=== PATIENT | male | born 1955 | race Caucasian/White ===

== ENCOUNTER 2017-03-26 19:14 | Inpatient (IN) | payer OTHER ==
[~2017-03-26] VITALS: Ht 109.2 cm; Wt 57.8 kg
[2017-03-26 19:40] LABS: BASOPHIL COUNT 0.1 K/uL (0-0.1); EOSINOPHIL (%) 0 % (0-5); IMMATURE GRANULOCYTE (%) 1.7 % (0.0-0.7); IMMATURE GRANULOCYTE COUNT 0.4 K/uL; INSTRUMENT ABS NEUTROPHIL CT 20.4 K/uL; LYMPHOCYTE COUNT 0.9 K/uL (1.0-2.8); MCH 30.2 PG (29.0-34.0); MCHC 34.8 G/DL (30.0-36.0); MCV 86.7 FL (86-99); MEAN PLAT.VOLUME 9.1 uM^3 (9.0-12.4); MONOCYTE (%) 3.8 % (3-12); MONOCYTE COUNT 0.9 K/uL (0-0.8); NEUTROPHIL (%) 90.5 % (45-76); NEUTROPHIL COUNT 20.4 K/uL (1.8-6.4); PLATELET COUNT 283 K/uL (156-360); RBC DIS.WIDTH-CV 14.6 % (11.8-14.6); RBC DIS.WIDTH-SD 45.1 % (39-53); RED BLOOD COUNT 5.77 M/uL (4.00-5.50); WHITE BLOOD COUNT 22.6 K/uL (4.1-10.2)
[2017-03-26 19:41] LABS: CARBON DIOXIDE (BICARBONATE) 16.4 MEQ/L (20-31)
[2017-03-26 19:42] LABS: CREATININE 1.2 mg/dL (0.6-1.3); POTASSIUM 2.8 mEq/L (3.7-5.4)
[2017-03-26 19:46] LABS: INTER. NORMALIZED RATIO 1.1; PROTHROMBIN TIME 12.9 SEC (10.2-12.9)
[2017-03-26 19:51] LABS: CHLORIDE 102 mEq/L (99-109); POTASSIUM 2.8 mEq/L (3.7-5.4)
[2017-03-26 19:52] LABS: SODIUM 141 mEq/L (136-147)
[2017-03-26 19:55] LABS: ANION GAP 25 MEQ/L (2-14)
[2017-03-26 19:56] LABS: TOTAL BILIRUBIN 3.8 mg/dL (0.0-1.0)
[2017-03-26 19:57] LABS: ALKALINE PHOSPHATASE 124 IU/L (3-129)
[2017-03-26 19:58] LABS: GFR ESTIMATE (CALCULATED) 55 mL/min/
[2017-03-26 19:59] LABS: UREA NITROGEN (BUN) 24 mg/dL (9-23)
[2017-03-26 20:02] LABS: TROP-I INTERPRETATION POSITIVE
[2017-03-26 20:12] LABS: GLUCOSE 424 mg/dL (70-99); TROPONIN-I 1.03 ng/mL (0.0-0.30)
[2017-03-26 20:46] LABS: LIPASE 91 U/L (1.0-51.0)
[2017-03-26 20:56] LABS: ADD MIUA? YES; BILIRUBIN NEGATIVE; BLOOD MODERATE; COLOR YELLOW ((YELLOW)); GLUCOSE (STRIP) >=500; KETONES 5; LEUKOCYTES NEGATIVE; NITRITE NEGATIVE; PROTEIN (STRIP) 100; SPECIFIC GRAVITY 1.039 (1.000-1.030); UROBILINOGEN 0.2 MG/DL (0.2-1.0)
[2017-03-26 20:59] LABS: Estimated Average Glucose 82 mg/dL (70-123); HEMOGLOBIN A1c (GLYCOHEMOGLOB) 4.5 % HGB (Below 5.7)
[2017-03-26 21:01] LABS: BACTERIA NONE SEEN /HPF; EPITHELIAL CELLS RARE /HPF; HYALINE CASTS 0-5 /LPF; MUCUS TRACE /LPF; RED BLOOD CELLS 20-30 /HPF (0-5); UCUL ADDED? NO; WHITE BLOOD CELLS 0-5 /HPF (0-5)
[2017-03-26 21:18] LABS: POINT-OF-CARE METER ID UU14100415
[2017-03-26 22:28] LABS: POINT-OF-CARE METER ID UU14100415
[2017-03-26 23:37] LABS: BASE EXCESS -16.4 mEq/L (-3 to +3); BICARBONATE 8.8 mEq/L (22-26); CARBOXY HGB 1.9 % (0-5); COMMENTS - BLOOD GASES C+A+; DEVICE NIV; FI02 100 %; METHEMOGLOBIN 1.1 % (0-1.5); MODE SPONT; PCO2 21 mm Hg (35-45); PO2 157 mm Hg (80-100); SITE RR
[2017-03-26 23:38] LABS: PEEP 8 CM/H20; PRES. SUPPORT 10 CM/H2O; TOTAL RESP RATE 32 resp/min; pH 7.23 (7.35-7.45)
[2017-03-26 23:58] LABS: POINT-OF-CARE METER ID UU14100415
[2017-03-27] VITALS (26 sets, daily range): BP systolic 78–152; BP diastolic 52–139
[2017-03-27 00:47] LABS: POINT-OF-CARE METER ID UU14100415
[2017-03-27 01:43] LABS: MAGNESIUM 2.2 mg/dl (1.3-2.7); SAMPLE HEMOLYSIS CHECK 0; SAMPLE ICTERIC CHECK 1; SAMPLE LIPEMIA CHECK 0
[2017-03-27] MEDS ORDERED: NORVASC5 MG PO (03:09)
[2017-03-27] MEDS ORDERED: CILOSTAZOL100 MG PO (03:11)
[2017-03-27] MEDS ORDERED: LO-DOSE ASPIRIN81 M1 PO (03:11)
[2017-03-27] MEDS ORDERED: NEURONTIN300 MG PO (03:12)
[2017-03-27] MEDS ORDERED: EFFIENT10 MG PO (03:12)
[2017-03-27 03:13] LABS: BASOPHIL COUNT 0.1 K/uL (0-0.1); EOSINOPHIL (%) 0 % (0-5); IMMATURE GRANULOCYTE (%) 1.9 % (0.0-0.7); IMMATURE GRANULOCYTE COUNT 0.6 K/uL; INSTRUMENT ABS NEUTROPHIL CT 28.9 K/uL; LYMPHOCYTE COUNT 1.4 K/uL (1.0-2.8); MEAN PLAT.VOLUME 9.1 uM^3 (9.0-12.4); MONOCYTE (%) 6.6 % (3-12); MONOCYTE COUNT 2.2 K/uL (0-0.8); NEUTROPHIL (%) 87.1 % (45-76); NEUTROPHIL COUNT 28.9 K/uL (1.8-6.4); PLATELET COUNT 267 K/uL (156-360)
[2017-03-27] MEDS ORDERED: PRAVACHOL20 MG PO (03:13)
[2017-03-27] MEDS ORDERED: PERCOCET 7.51 TABLET PO (03:14)
[2017-03-27 03:17] LABS: MCH 30.1 PG (29.0-34.0); MCHC 34.6 G/DL (30.0-36.0); MCV 87.1 FL (86-99); RBC DIS.WIDTH-SD 46.8 % (39-53); RED BLOOD COUNT 5.74 M/uL (4.00-5.50); WHITE BLOOD COUNT 33.1 K/uL (4.1-10.2)
[2017-03-27 03:32] LABS: SODIUM 143 mEq/L (136-147)
[2017-03-27 03:35] LABS: TROP-I INTERPRETATION POSITIVE
[2017-03-27 03:39] LABS: TROPONIN-I 1.42 ng/mL (0.0-0.30)
[2017-03-27 03:40] LABS: METH RESISTANT S AUREUS PCR NEGATIVE (NEGATIVE)
[2017-03-27 03:42] LABS: MAGNESIUM 1.9 mg/dL (1.3-2.7); POTASSIUM 3.2 mEq/L (3.7-5.4)
[2017-03-27 03:43] LABS: PROBE CHECK PASS; SPECIMEN PROCESSING CONTROL PASS
[2017-03-27 03:44] LABS: GLUCOSE 215 mg/dL (70-99)
[2017-03-27 03:45] LABS: ANION GAP 19 MEQ/L (2-14)
[2017-03-27 03:46] LABS: TOTAL BILIRUBIN 3.1 mg/dL (0.0-1.0)
[2017-03-27 03:48] LABS: ALKALINE PHOSPHATASE 106 IU/L (3-129); GFR ESTIMATE (CALCULATED) > 59 mL/min/
[2017-03-27 03:49] LABS: UREA NITROGEN (BUN) 21 mg/dL (9-23)
[2017-03-27 03:51] LABS: CREATINE KINASE 118 IU/L (1-294); TOTAL CK 118 IU/L (1-294)
[2017-03-27 03:57] LABS: CHLORIDE 116 mEq/L (99-109); CK-MB 19.1 ng/mL (0.0-4.9)
[2017-03-27 04:10] LABS: BASE EXCESS -14.7 mEq/L (-3 to +3); BICARBONATE 9.6 mEq/L (22-26); CARBOXY HGB 1.7 % (0-5); COMMENTS - BLOOD GASES C+A+; DEVICE NIV; FI02 90 %; MODE SPONT; PCO2 21 mm Hg (35-45); PEEP 10 CM/H20; PO2 189 mm Hg (80-100); PRES. SUPPORT 5 CM/H2O; SITE LR; TOTAL RESP RATE 41 resp/min
[2017-03-27 04:11] LABS: pH 7.27 (7.35-7.45)
[2017-03-27 04:18] LABS: POINT-OF-CARE METER ID UU14174217; POINT-OF-CARE USER ID RADDRS44
[2017-03-27 06:48] LABS: POINT-OF-CARE METER ID UU14174217; POINT-OF-CARE USER ID RADDRS44
[2017-03-27 12:08] LABS: POINT-OF-CARE METER ID UU13113803
[2017-03-27 18:00] LABS: POINT-OF-CARE METER ID UU14314082
[2017-03-27 23:30] LABS: POINT-OF-CARE METER ID UU14174217
[2017-03-27 23:49] LABS: CHLORIDE 111 mEq/L (99-109); POTASSIUM 3.4 mEq/L (3.7-5.4); SODIUM 137 mEq/L (136-147)
[2017-03-27 23:52] LABS: GLUCOSE 74 mg/dL (70-99)
[2017-03-27 23:53] LABS: ANION GAP 15 MEQ/L (2-14); TOTAL BILIRUBIN 2.9 mg/dL (0.0-1.0)
[2017-03-27 23:55] LABS: ALKALINE PHOSPHATASE 86 IU/L (3-129); GFR ESTIMATE (CALCULATED) > 59 mL/min/
[2017-03-27 23:56] LABS: UREA NITROGEN (BUN) 29 mg/dL (9-23)
[2017-03-27 23:58] LABS: TOTAL CK 706 IU/L (1-294)
[2017-03-27 23:59] LABS: TROP-I INTERPRETATION POSITIVE
[2017-03-28] VITALS (43 sets, daily range): BP systolic 66–174; BP diastolic 24–87
[2017-03-28] LABS: CREATINE KINASE 706 IU/L (1-294)
[2017-03-28 00:01] LABS: TROPONIN-I 1.22 ng/mL (0.0-0.30)
[2017-03-28 00:34] LABS: CK-MB 25.4 ng/mL (0.0-4.9)
[2017-03-28 00:52] LABS: HEMATOCRIT 33.6 % (38.0-50.0); MCH 30.3 PG (29.0-34.0); MEAN PLAT.VOLUME 9.5 uM^3 (9.0-12.4); RBC DIS.WIDTH-CV 14.9 % (11.8-14.6); RBC DIS.WIDTH-SD 45.2 % (39-53); WHITE BLOOD COUNT 12.2 K/uL (4.1-10.2)
[2017-03-28 01:42] LABS: ABS NEUTROPHIL COUNT 11.8; ANISOCYTOSIS 1+; BURR CELLS 2+; EOSINOPHIL ABS CT 0; INSTRUMENT ABS NEUTROPHIL CT 11.1 K/uL; LYMPHOCYTES 1.8 % (15.0-45.0); MICROCYTOSIS 1+; OVALOCYTES 1+; PLAT.SUFFICIENCY DECREASED; POIKILOCYTOSIS 1+; SEG.NEUTROPHILS 75.4 % (46.0-76.0); SPHEROCYTES 1+
[2017-03-28 03:30] LABS: CARBOXY HGB 1.9 % (0-5); PCO2 < 19 mm Hg (35-45)
[2017-03-28 03:31] LABS: COMMENTS - BLOOD GASES A+C+; DEVICE NCHH; FI02 70 %; O2 FLOW 40 L/MIN; PO2 51 mm Hg (80-100); SITE RR; TOTAL RESP RATE 34 resp/min; pH 7.42 (7.35-7.45)
[2017-03-28 04:18] LABS: PLATELET COUNT 96 K/uL (156-360)
[2017-03-28 04:55] LABS: POINT-OF-CARE METER ID UU14314082
[2017-03-28 04:59] LABS: INTER. NORMALIZED RATIO 1.4; PROTHROMBIN TIME 15.8 SEC (10.2-12.9)
[2017-03-28 05:03] LABS: HEMATOCRIT 32.5 % (38.0-50.0); MCH 29.8 PG (29.0-34.0); MCHC 34.2 G/DL (30.0-36.0); MCV 87.4 FL (86-99); RBC DIS.WIDTH-CV 15.3 % (11.8-14.6); RBC DIS.WIDTH-SD 48.4 % (39-53); RED BLOOD COUNT 3.72 M/uL (4.00-5.50); WHITE BLOOD COUNT 9.9 K/uL (4.1-10.2)
[2017-03-28 05:09] LABS: CHLORIDE 109 mEq/L (99-109); POTASSIUM 3.5 mEq/L (3.7-5.4); SODIUM 136 mEq/L (136-147)
[2017-03-28 05:11] LABS: GLUCOSE 91 mg/dL (70-99)
[2017-03-28 05:12] LABS: ANION GAP 15 MEQ/L (2-14)
[2017-03-28 05:13] LABS: TOTAL BILIRUBIN 2.9 mg/dL (0.0-1.0)
[2017-03-28 05:15] LABS: ALKALINE PHOSPHATASE 75 IU/L (3-129); GFR ESTIMATE (CALCULATED) > 59 mL/min/
[2017-03-28 05:16] LABS: UREA NITROGEN (BUN) 32 mg/dL (9-23)
[2017-03-28 06:00] LABS: ABS NEUTROPHIL COUNT 8.7; ANISOCYTOSIS 2+; BAND NEUTROPHILS 28.1 % (0-8.0); BURR CELLS 2+; EOSINOPHIL ABS CT 0; LYMPHOCYTES 1.8 % (15.0-45.0); MEAN PLAT.VOLUME 10.1 uM^3 (9.0-12.4); MICROCYTOSIS 1+; PLAT.SUFFICIENCY DECREASED; PLATELET COUNT 92 K/uL (156-360); POIKILOCYTOSIS 3+; SEG.NEUTROPHILS 59.6 % (46.0-76.0)
[2017-03-28 06:07] LABS: CARBOXY HGB 1.4 % (0-5); METHEMOGLOBIN 2.1 % (0-1.5)
[2017-03-28 06:08] LABS: BICARBONATE 15.3 mEq/L (22-26); COMMENTS - BLOOD GASES C+; DEVICE VENT; FI02 100 %; MECHANICAL RATE 16 resp/min; MODE AC; PCO2 31 mm Hg (35-45); PEEP 5 CM/H20; PO2 295 mm Hg (80-100); SITE RIGHT FOREARM ALINE; TIDAL VOLUME 500 ML; TOTAL RESP RATE 37 resp/min
[2017-03-28] MEDS ORDERED: NORCO 5/3251 TABLET PO (07:18)
[2017-03-28] MEDS ORDERED: NORCO 7.5/321 TABLET PO (07:19)
[2017-03-28 08:24] LABS: HEMATOCRIT 29.4 % (38.0-50.0); MCV 85.7 FL (86-99); MEAN PLAT.VOLUME 10.4 uM^3 (9.0-12.4); PLATELET COUNT 97 K/uL (156-360); RBC DIS.WIDTH-CV 15.2 % (11.8-14.6); RBC DIS.WIDTH-SD 46.9 % (39-53); RED BLOOD COUNT 3.43 M/uL (4.00-5.50); WHITE BLOOD COUNT 9.7 K/uL (4.1-10.2)
[2017-03-28 08:47] LABS: ANION GAP 12 MEQ/L (2-14); CHLORIDE 109 MEQ/L (99-109); GFR ESTIMATE (CALCULATED) > 59 mL/min/; GLUCOSE 94 mg/dL (70-99); POTASSIUM 3.5 MEQ/L (3.7-5.4); SAMPLE HEMOLYSIS CHECK 0; SAMPLE ICTERIC CHECK 1; SAMPLE LIPEMIA CHECK 0; SODIUM 139 MEQ/L (136-147); UREA NITROGEN (BUN) 31 mg/dL (9-23)
[2017-03-28 08:51] LABS: TROP-I INTERPRETATION POSITIVE
[2017-03-28 09:17] LABS: BASE EXCESS -4.8 mEq/L (-3 to +3); CARBOXY HGB 1.4 % (0-5); METHEMOGLOBIN 2.2 % (0-1.5); PCO2 32 mm Hg (35-45); pH 7.39 (7.35-7.45)
[2017-03-28 09:18] LABS: BICARBONATE 19.4 mEq/L (22-26); PO2 86 mm Hg (80-100)
[2017-03-28 09:19] LABS: DEVICE 840; FI02 55 %; MECHANICAL RATE 16 resp/min; MODE AC; PEEP 5 CM/H20; SITE ART LINE; TIDAL VOLUME 500 ML; TOTAL RESP RATE 32 resp/min
[2017-03-28 12:38] LABS: POINT-OF-CARE METER ID UU14314082
[2017-03-28 16:36] LABS: BASE EXCESS -1.7 mEq/L (-3 to +3); BICARBONATE 21.7 mEq/L (22-26); CARBOXY HGB 1.9 % (0-5); DEVICE 840; METHEMOGLOBIN 1.7 % (0-1.5); PCO2 32 mm Hg (35-45); PO2 82 mm Hg (80-100); SITE ALINE; pH 7.44 (7.35-7.45)
[2017-03-28 16:37] LABS: FI02 40 %; MECHANICAL RATE 16 resp/min; MODE AC; TIDAL VOLUME 450 ML; TOTAL RESP RATE 16 resp/min
[2017-03-28 16:38] LABS: PEEP 6 CM/H20
[2017-03-28 16:49] LABS: ANION GAP 9 MEQ/L (2-14); CHLORIDE 110 MEQ/L (99-109); SAMPLE HEMOLYSIS CHECK 0; SAMPLE ICTERIC CHECK 1; SAMPLE LIPEMIA CHECK 0; SODIUM 140 MEQ/L (136-147)
[2017-03-28 16:51] LABS: POTASSIUM 2.7 MEQ/L (3.7-5.4)
[2017-03-28 16:54] LABS: GFR ESTIMATE (CALCULATED) > 59 mL/min/; GLUCOSE 90 mg/dL (70-99); UREA NITROGEN (BUN) 25 mg/dL (9-23)
[2017-03-28 17:04] LABS: ABS NEUTROPHIL COUNT 3.4; ANISOCYTOSIS 1+; BAND NEUTROPHILS 22.6 % (0-8.0); EOSINOPHIL ABS CT 0.1; EOSINOPHILS 1.7 % (0-5.0); HEMATOCRIT 35.6 % (38.0-50.0); INSTRUMENT ABS NEUTROPHIL CT 3.4 K/uL; LYMPHOCYTES 6.1 % (15.0-45.0); MCH 30.9 PG (29.0-34.0); MEAN PLAT.VOLUME 9.9 uM^3 (9.0-12.4); PLAT.SUFFICIENCY DECREASED; PLATELET COUNT 88 K/uL (156-360); RBC DIS.WIDTH-CV 15.6 % (11.8-14.6); RBC DIS.WIDTH-SD 48.2 % (39-53); TARGET CELLS 1+; TROP-I INTERPRETATION POSITIVE; TROPONIN-I 0.68 ng/mL (0.0-0.30); WHITE BLOOD COUNT 3.8 K/uL (4.1-10.2)
[2017-03-28 17:07] LABS: RED BLOOD COUNT 4.14 M/uL (4.00-5.50)
[2017-03-28 17:37] LABS: INTER. NORMALIZED RATIO 1.5; PROTHROMBIN TIME 16.9 SEC (10.2-12.9)
[2017-03-28 18:03] LABS: MAGNESIUM 1.3 mg/dl (1.3-2.7)
[2017-03-28 18:30] LABS: POINT-OF-CARE METER ID UU14314082
[2017-03-28 20:18] LABS: HEMATOCRIT 37.2 % (38.0-50.0); MCHC 34.9 G/DL (30.0-36.0); MCV 85.9 FL (86-99); MEAN PLAT.VOLUME 9.9 uM^3 (9.0-12.4); PLATELET COUNT 83 K/uL (156-360); RBC DIS.WIDTH-CV 15.4 % (11.8-14.6); RBC DIS.WIDTH-SD 47.6 % (39-53); RED BLOOD COUNT 4.33 M/uL (4.00-5.50)
[2017-03-28 23:51] LABS: POINT-OF-CARE METER ID UU13113803
[2017-03-29] VITALS (15 sets, daily range): BP systolic 0–193; BP diastolic 0–92
[2017-03-29 00:26] LABS: POINT-OF-CARE METER ID UU13113803
[2017-03-29 00:51] LABS: BASE EXCESS -2.1 mEq/L (-3 to +3); BICARBONATE 21.1 mEq/L (22-26); CARBOXY HGB 2.1 % (0-5); COMMENTS - BLOOD GASES C+; DEVICE VENT; FI02 30 %; METHEMOGLOBIN 1.7 % (0-1.5); PCO2 31 mm Hg (35-45); PO2 72 mm Hg (80-100); SITE ALINE; pH 7.44 (7.35-7.45)
[2017-03-29 00:52] LABS: MECHANICAL RATE 16 resp/min; MODE A/C; PEEP 5 CM/H20; TIDAL VOLUME 500 ML; TOTAL RESP RATE 27 resp/min
[2017-03-29 00:53] LABS: HEMATOCRIT 37.2 % (38.0-50.0); MCH 30.5 PG (29.0-34.0); MCHC 35.5 G/DL (30.0-36.0); MCV 85.9 FL (86-99); MEAN PLAT.VOLUME 10.1 uM^3 (9.0-12.4); PLATELET COUNT 88 K/uL (156-360); RBC DIS.WIDTH-CV 15.3 % (11.8-14.6); RBC DIS.WIDTH-SD 47.9 % (39-53); RED BLOOD COUNT 4.33 M/uL (4.00-5.50); WHITE BLOOD COUNT 6.8 K/uL (4.1-10.2)
[2017-03-29 03:22] LABS: POINT-OF-CARE METER ID UU14208751
[2017-03-29 04:55] LABS: HEMATOCRIT 37.3 % (38.0-50.0); MCH 30.6 PG (29.0-34.0); MCHC 35.4 G/DL (30.0-36.0); MCV 86.3 FL (86-99); MEAN PLAT.VOLUME 10.1 uM^3 (9.0-12.4); PLATELET COUNT 96 K/uL (156-360); RBC DIS.WIDTH-CV 15.5 % (11.8-14.6); RBC DIS.WIDTH-SD 48.3 % (39-53); RED BLOOD COUNT 4.32 M/uL (4.00-5.50); WHITE BLOOD COUNT 6.6 K/uL (4.1-10.2)
[2017-03-29 05:03] LABS: CHLORIDE 113 mEq/L (99-109); POTASSIUM 2.9 mEq/L (3.7-5.4); SODIUM 145 mEq/L (136-147)
[2017-03-29 05:05] LABS: GLUCOSE 122 mg/dL (70-99)
[2017-03-29 05:06] LABS: ANION GAP 14 MEQ/L (2-14)
[2017-03-29 05:08] LABS: TOTAL BILIRUBIN 6.2 mg/dL (0.0-1.0)
[2017-03-29 05:09] LABS: ALKALINE PHOSPHATASE 79 IU/L (3-129); GFR ESTIMATE (CALCULATED) > 59 mL/min/
[2017-03-29 05:10] LABS: UREA NITROGEN (BUN) 19 mg/dL (9-23)
[2017-03-29 07:50] LABS: POINT-OF-CARE METER ID UU14208751
[2017-03-29 08:37] LABS: HEMATOCRIT 36.2 % (38.0-50.0); MCH 30.3 PG (29.0-34.0); MCHC 35.1 G/DL (30.0-36.0); MCV 86.4 FL (86-99); MEAN PLAT.VOLUME 10.6 uM^3 (9.0-12.4); PLATELET COUNT 88 K/uL (156-360); RBC DIS.WIDTH-CV 15.9 % (11.8-14.6); RBC DIS.WIDTH-SD 49.2 % (39-53); RED BLOOD COUNT 4.19 M/uL (4.00-5.50); WHITE BLOOD COUNT 6.1 K/uL (4.1-10.2)
[2017-03-29 11:20] LABS: HEMATOCRIT 35.2 % (38.0-50.0); MCH 29.8 PG (29.0-34.0); MCHC 34.7 G/DL (30.0-36.0); MCV 85.9 FL (86-99); MEAN PLAT.VOLUME 10.3 uM^3 (9.0-12.4); PLATELET COUNT 89 K/uL (156-360); RBC DIS.WIDTH-CV 15.9 % (11.8-14.6); WHITE BLOOD COUNT 6.1 K/uL (4.1-10.2)
[2017-03-29 11:35] LABS: INTER. NORMALIZED RATIO 1.5; PROTHROMBIN TIME 17.5 SEC (10.2-12.9)
[2017-03-29 11:37] LABS: PTT 33.6 SEC (25-37)
[2017-03-29 12:05] LABS: ANION GAP 10 MEQ/L (2-14); CHLORIDE 113 MEQ/L (99-109); GFR ESTIMATE (CALCULATED) > 59 mL/min/; GLUCOSE 116 mg/dL (70-99); MAGNESIUM 1.5 mg/dl (1.3-2.7); POTASSIUM 3.4 MEQ/L (3.7-5.4); SAMPLE HEMOLYSIS CHECK 0; SAMPLE ICTERIC CHECK 2; SAMPLE LIPEMIA CHECK 0; SODIUM 144 MEQ/L (136-147); UREA NITROGEN (BUN) 17 mg/dL (9-23)
[2017-03-29 12:20] LABS: POINT-OF-CARE METER ID UU14208751
[2017-03-29 18:07] LABS: POINT-OF-CARE METER ID UU14314082
[2017-03-30 00:41] LABS: POINT-OF-CARE METER ID UU14208751
[2017-03-30 01:00] VITALS: BP 176/98
[2017-03-30 02:00] VITALS: BP 176/98
[2017-03-30 05:22] LABS: BASE EXCESS 2.8 mEq/L (-3 to +3); BICARBONATE 25.5 mEq/L (22-26); CARBOXY HGB 1.5 % (0-5); COMMENTS - BLOOD GASES C+; DEVICE VENT; FI02 50 %; MODE A/C; PCO2 32 mm Hg (35-45); PO2 107 mm Hg (80-100); SITE ALINE; pH 7.51 (7.35-7.45)
[2017-03-30 05:23] LABS: MECHANICAL RATE 16 resp/min; PEEP 6 CM/H20; TIDAL VOLUME 500 ML; TOTAL RESP RATE 25 resp/min
[2017-03-30 05:56] LABS: POINT-OF-CARE METER ID UU14314082
[2017-03-30 06:18] LABS: MCH 29.8 PG (29.0-34.0); MCHC 33.9 G/DL (30.0-36.0); MCV 88.1 FL (86-99); MEAN PLAT.VOLUME 10.2 uM^3 (9.0-12.4); PLATELET COUNT 95 K/uL (156-360); RBC DIS.WIDTH-CV 15.9 % (11.8-14.6); RBC DIS.WIDTH-SD 50.4 % (39-53); RED BLOOD COUNT 3.52 M/uL (4.00-5.50); WHITE BLOOD COUNT 7.4 K/uL (4.1-10.2)
[2017-03-30 06:35] LABS: INTER. NORMALIZED RATIO 1.2; PROTHROMBIN TIME 14.2 SEC (10.2-12.9)
[2017-03-30 06:43] LABS: CHLORIDE 110 MEQ/L (99-109); GFR ESTIMATE (CALCULATED) > 59 mL/min/; GLUCOSE 126 mg/dL (70-99); POTASSIUM 2.9 MEQ/L (3.7-5.4); SODIUM 147 MEQ/L (136-147); UREA NITROGEN (BUN) 13 mg/dL (9-23)
[2017-03-30 06:47] LABS: ANION GAP 11 MEQ/L (2-14); MAGNESIUM 1.4 mg/dl (1.3-2.7); SAMPLE HEMOLYSIS CHECK 0; SAMPLE ICTERIC CHECK 2; SAMPLE LIPEMIA CHECK 0; VANCOMYCIN, TROUGH 15.9 MCG/ML (10-20)
[2017-03-30 07:33] LABS: EOSINOPHIL (%) 1.3 % (0-5); EOSINOPHIL COUNT 0.1 K/uL (0-0.3); IMMATURE GRANULOCYTE (%) 1.5 % (0.0-0.7); IMMATURE GRANULOCYTE COUNT 0.1 K/uL; INSTRUMENT ABS NEUTROPHIL CT 6.5 K/uL; LYMPHOCYTE COUNT 0.3 K/uL (1.0-2.8); MONOCYTE (%) 5.5 % (3-12); MONOCYTE COUNT 0.4 K/uL (0-0.8); NEUTROPHIL COUNT 6.5 K/uL (1.8-6.4)
[2017-03-30 08:00] VITALS: BP 159/90
[2017-03-30 11:39] LABS: C DIFF TOXIN NEGATIVE (NEGATIVE)
[2017-03-30 11:43] LABS: PROBE CHECK PASS; SPECIMEN PROCESSING CONTROL PASS
[2017-03-30 11:49] LABS: POINT-OF-CARE METER ID UU14314082
[2017-03-30 14:41] LABS: ANION GAP 12 MEQ/L (2-14); CHLORIDE 111 MEQ/L (99-109); GFR ESTIMATE (CALCULATED) > 59 mL/min/; GLUCOSE 110 mg/dL (70-99); POTASSIUM 3.1 MEQ/L (3.7-5.4); SAMPLE HEMOLYSIS CHECK 0; SAMPLE ICTERIC CHECK 2; SAMPLE LIPEMIA CHECK 0; SODIUM 146 MEQ/L (136-147); UREA NITROGEN (BUN) 11 mg/dL (9-23)
[2017-03-30 14:42] LABS: MAGNESIUM 2.3 mg/dl (1.3-2.7)
[2017-03-30 18:01] LABS: POINT-OF-CARE METER ID UU14314082
[2017-03-30 18:27] LABS: POINT-OF-CARE METER ID UU14314082
[2017-03-30 23:57] LABS: POINT-OF-CARE METER ID UU14314082
[2017-03-31 02:00] VITALS: BP 144/90
[2017-03-31 02:00] LABS: BASE EXCESS -3.7 mEq/L (-3 to +3); BICARBONATE 20.6 mEq/L (22-26); CARBOXY HGB 1.8 % (0-5); METHEMOGLOBIN 1.6 % (0-1.5); PCO2 34 mm Hg (35-45)
[2017-03-31 02:01] LABS: COMMENTS - BLOOD GASES C+; DEVICE 980 VENT; FI02 100 %; MECHANICAL RATE 16 resp/min; MODE AC; PEEP 8 CM/H20; PO2 80 mm Hg (80-100); SITE ALINE; TIDAL VOLUME 500 ML; TOTAL RESP RATE 31 resp/min; pH 7.39 (7.35-7.45)
[2017-03-31 03:00] VITALS: BP 141/84
[2017-03-31 04:00] VITALS: BP 141/84
[2017-03-31 05:28] LABS: HEMATOCRIT 29.2 % (38.0-50.0); MCH 29.6 PG (29.0-34.0); MCHC 33.6 G/DL (30.0-36.0); MCV 88.2 FL (86-99); PLATELET COUNT 90 K/uL (156-360); RBC DIS.WIDTH-CV 15.9 % (11.8-14.6); RBC DIS.WIDTH-SD 50.9 % (39-53); RED BLOOD COUNT 3.31 M/uL (4.00-5.50); WHITE BLOOD COUNT 4.7 K/uL (4.1-10.2)
[2017-03-31 06:00] LABS: ALKALINE PHOSPHATASE 60 IU/L (3-129); ANION GAP 10 MEQ/L (2-14); CHLORIDE 113 MEQ/L (99-109); DIRECT BILIRUBIN 3.1 mg/dL (0.0-0.3); GFR ESTIMATE (CALCULATED) > 59 mL/min/; POTASSIUM 3.1 MEQ/L (3.7-5.4); SAMPLE HEMOLYSIS CHECK 0; SAMPLE ICTERIC CHECK 1; SAMPLE LIPEMIA CHECK 0; SODIUM 146 MEQ/L (136-147); TOTAL BILIRUBIN 4.7 MG/DL (0.0-1.0); TRIGLYCERIDES 204 MG/DL (Normal: <150); UREA NITROGEN (BUN) 15 mg/dL (9-23)
[2017-03-31 06:04] LABS: GLUCOSE 182 mg/dL (70-99); PREALBUMIN 4.4 mg/dL (10-40)
[2017-03-31 06:14] LABS: POINT-OF-CARE METER ID UU13113731
[2017-03-31 07:03] LABS: ABS NEUTROPHIL COUNT 4.1; BAND NEUTROPHILS 3.6 % (0-8.0); BASOPHILS 0.9 %; EOSINOPHIL ABS CT 0; EOSINOPHILS 0.9 % (0-5.0); INSTRUMENT ABS NEUTROPHIL CT 3.7 K/uL; LYMPHOCYTES 4.5 % (15.0-45.0); NUCLEATED RBC'S 1.8; PLAT.SUFFICIENCY DECREASED; SEG.NEUTROPHILS 83.9 % (46.0-76.0); SMUDGE CELLS 2.7
[2017-03-31 12:45] LABS: POINT-OF-CARE METER ID UU13113731
[2017-03-31 18:03] LABS: POINT-OF-CARE METER ID UU13113748
[2017-03-31 18:31] LABS: ANION GAP 10 MEQ/L (2-14); CHLORIDE 113 MEQ/L (99-109); GFR ESTIMATE (CALCULATED) > 59 mL/min/; GLUCOSE 153 mg/dL (70-99); MAGNESIUM 1.8 mg/dl (1.3-2.7); POTASSIUM 3.1 MEQ/L (3.7-5.4); SAMPLE HEMOLYSIS CHECK 0; SAMPLE ICTERIC CHECK 1; SAMPLE LIPEMIA CHECK 0; SODIUM 146 MEQ/L (136-147); UREA NITROGEN (BUN) 18 mg/dL (9-23)
[2017-03-31 21:00] VITALS: BP 139/73
[2017-03-31 22:00] VITALS: BP 135/70
[2017-03-31 23:00] VITALS: BP 130/74
[2017-04-01] VITALS: BP 133/83
[2017-04-01 04:51] LABS: HEMATOCRIT 28.1 % (38.0-50.0); MCH 30.4 PG (29.0-34.0); MCHC 34.2 G/DL (30.0-36.0); MCV 88.9 FL (86-99); MEAN PLAT.VOLUME 10.8 uM^3 (9.0-12.4); PLATELET COUNT 65 K/uL (156-360); RBC DIS.WIDTH-SD 51.8 % (39-53); RED BLOOD COUNT 3.16 M/uL (4.00-5.50)
[2017-04-01 05:01] LABS: CHLORIDE 112 mEq/L (99-109); POTASSIUM 2.8 mEq/L (3.7-5.4); SODIUM 144 mEq/L (136-147)
[2017-04-01 05:03] LABS: MAGNESIUM 1.6 mg/dL (1.3-2.7)
[2017-04-01 05:04] LABS: GLUCOSE 157 mg/dL (70-99)
[2017-04-01 05:05] LABS: ANION GAP 9 MEQ/L (2-14)
[2017-04-01 05:08] LABS: ALKALINE PHOSPHATASE 55 IU/L (3-129); GFR ESTIMATE (CALCULATED) > 59 mL/min/
[2017-04-01 05:09] LABS: TOTAL BILIRUBIN 2.9 mg/dL (0.0-1.0); UREA NITROGEN (BUN) 20 mg/dL (9-23)
[2017-04-01 05:27] LABS: BASE EXCESS 3.3 mEq/L (-3 to +3); CARBOXY HGB 1.5 % (0-5); METHEMOGLOBIN 1.5 % (0-1.5); PCO2 30 mm Hg (35-45); PO2 95 mm Hg (80-100); pH 7.54 (7.35-7.45)
[2017-04-01 05:28] LABS: BICARBONATE 25.7 mEq/L (22-26); COMMENTS - BLOOD GASES C+A+; DEVICE VENTILATOR; FI02 40 %; MECHANICAL RATE 16 resp/min; MODE A/C; SITE A LINE; TOTAL RESP RATE 27 resp/min
[2017-04-01 05:29] LABS: PEEP 8 CM/H20; TIDAL VOLUME 500 ML
[2017-04-01 06:47] LABS: ABS NEUTROPHIL COUNT 3.3; BAND NEUTROPHILS 7.2 % (0-8.0); BASOPHILS 0.9 %; EOSINOPHIL ABS CT 0.1; EOSINOPHILS 2.7 % (0-5.0); HYPOCHROMASIA 2+; LYMPHOCYTES 4.5 % (15.0-45.0); MACROCYTES 2+; MYELOCYTES 0.9 %; NUCLEATED RBC'S 0.9; OVALOCYTES 1+; PLAT.SUFFICIENCY DECREASED; POLYCHROMASIA 1+; SEG.NEUTROPHILS 75.7 % (46.0-76.0)
[2017-04-01 08:00] VITALS: BP 112/74
[2017-04-01 13:48] LABS: POINT-OF-CARE METER ID UU14314082
[2017-04-01 18:00] VITALS: BP 93/59
[2017-04-01 18:15] LABS: POINT-OF-CARE METER ID UU14314082
[2017-04-01 20:00] VITALS: BP 145/81
[2017-04-01 22:00] VITALS: BP 145/81
[2017-04-01 23:24] LABS: POINT-OF-CARE METER ID UU14208751
[2017-04-02] VITALS (9 sets, daily range): BP systolic 110–222; BP diastolic 58–116
[2017-04-02 04:14] LABS: POINT-OF-CARE METER ID UU14208751
[2017-04-02 04:54] LABS: MCHC 33.2 G/DL (30.0-36.0); MCV 90.4 FL (86-99); MEAN PLAT.VOLUME 10.4 uM^3 (9.0-12.4); RBC DIS.WIDTH-CV 16.2 % (11.8-14.6); RBC DIS.WIDTH-SD 52.9 % (39-53); RED BLOOD COUNT 3.43 M/uL (4.00-5.50); WHITE BLOOD COUNT 5.7 K/uL (4.1-10.2)
[2017-04-02 04:59] LABS: PLATELET COUNT 108 K/uL (156-360)
[2017-04-02 05:21] LABS: CHLORIDE 116 mEq/L (99-109); SODIUM 146 mEq/L (136-147)
[2017-04-02 05:21] LABS: BASE EXCESS 1.5 mEq/L (-3 to +3); BICARBONATE 23.7 mEq/L (22-26); CARBOXY HGB 1.8 % (0-5); COMMENTS - BLOOD GASES C+; METHEMOGLOBIN 1.8 % (0-1.5); PCO2 29 mm Hg (35-45); PO2 69 mm Hg (80-100); SITE A-LINE; pH 7.52 (7.35-7.45)
[2017-04-02 05:22] LABS: DEVICE 840; FI02 40 %; INSPIRATION TIME 0.7 seconds; MECHANICAL RATE 16 resp/min; MODE AC; PEEP 8 CM/H20; TIDAL VOLUME 500 ML; TOTAL RESP RATE 35 resp/min
[2017-04-02 05:23] LABS: GLUCOSE 130 mg/dL (70-99)
[2017-04-02 05:25] LABS: ANION GAP 7 MEQ/L (2-14); MAGNESIUM 2.2 mg/dL (1.3-2.7); POTASSIUM 3.4 mEq/L (3.7-5.4)
[2017-04-02 05:27] LABS: GFR ESTIMATE (CALCULATED) > 59 mL/min/
[2017-04-02 05:28] LABS: UREA NITROGEN (BUN) 21 mg/dL (9-23)
[2017-04-02 06:02] LABS: ABS NEUTROPHIL COUNT 4.7; ANISOCYTOSIS 1+; BAND NEUTROPHILS 9.9 % (0-8.0); BASOPHILS 0.9 %; EOSINOPHIL ABS CT 0.1; EOSINOPHILS 1.8 % (0-5.0); INSTRUMENT ABS NEUTROPHIL CT 4.3 K/uL; LYMPHOCYTES 4.5 % (15.0-45.0); METAMYELOCYTES 3.6 %; MICROCYTOSIS 1+; MYELOCYTES 0.9 %; OVALOCYTES 1+; PLAT.SUFFICIENCY DECREASED; SEG.NEUTROPHILS 72.1 % (46.0-76.0); TARGET CELLS 1+
[2017-04-02 12:01] LABS: POINT-OF-CARE METER ID UU14208751
[2017-04-02 17:29] LABS: POINT-OF-CARE METER ID UU14162636
[2017-04-03] VITALS (7 sets, daily range): BP systolic 113–147; BP diastolic 64–89
[2017-04-03 00:23] LABS: POINT-OF-CARE METER ID UU13113731
[2017-04-03 04:47] LABS: POINT-OF-CARE METER ID UU13113731
[2017-04-03 04:49] LABS: HEMATOCRIT 29.7 % (38.0-50.0); MCH 30.3 PG (29.0-34.0); MCHC 32.7 G/DL (30.0-36.0); MCV 92.8 FL (86-99); MEAN PLAT.VOLUME 10.7 uM^3 (9.0-12.4); PLATELET COUNT 126 K/uL (156-360); RBC DIS.WIDTH-CV 16.4 % (11.8-14.6); WHITE BLOOD COUNT 9.2 K/uL (4.1-10.2)
[2017-04-03 05:13] LABS: CHLORIDE 117 mEq/L (99-109); POTASSIUM 3.9 mEq/L (3.7-5.4); SODIUM 145 mEq/L (136-147)
[2017-04-03 05:15] LABS: GLUCOSE 138 mg/dL (70-99)
[2017-04-03 05:17] LABS: BASE EXCESS -0.1 mEq/L (-3 to +3); BICARBONATE 23.8 mEq/L (22-26); CARBOXY HGB 1.6 % (0-5); METHEMOGLOBIN 1.7 % (0-1.5); PO2 82 mm Hg (80-100); pH 7.44 (7.35-7.45)
[2017-04-03 05:17] LABS: ANION GAP 5 MEQ/L (2-14)
[2017-04-03 05:18] LABS: COMMENTS - BLOOD GASES C+; DEVICE 840; FI02 30 %; MECHANICAL RATE 16 resp/min; MODE AC/VC+; PCO2 35 mm Hg (35-45); SITE A-LINE
[2017-04-03 05:18] LABS: MAGNESIUM 1.8 mg/dL (1.3-2.7)
[2017-04-03 05:19] LABS: INSPIRATION TIME 0.85 seconds; PEEP 8 CM/H20; TIDAL VOLUME 500 ML; TOTAL RESP RATE 20 resp/min
[2017-04-03 05:19] LABS: GFR ESTIMATE (CALCULATED) > 59 mL/min/
[2017-04-03 05:20] LABS: UREA NITROGEN (BUN) 25 mg/dL (9-23)
[2017-04-03 07:54] LABS: ABS NEUTROPHIL COUNT 8.1; ANISOCYTOSIS 1+; ATYPICAL LYMPHOCYTE 0.9 %; BAND NEUTROPHILS 5.3 % (0-8.0); EOSINOPHIL ABS CT 0.1; EOSINOPHILS 0.9 % (0-5.0); HEMATOLOGY COMMENT 1 SN; INSTRUMENT ABS NEUTROPHIL CT 7.2 K/uL; LYMPHOCYTES 1.8 % (15.0-45.0); METAMYELOCYTES 1.8 %; MYELOCYTES 2.6 %; PLAT.SUFFICIENCY DECREASED; POLYCHROMASIA 1+; SEG.NEUTROPHILS 83.2 % (46.0-76.0); SPHEROCYTES 1+
[2017-04-03 14:42] LABS: POINT-OF-CARE METER ID UU13113731
[2017-04-03 18:25] LABS: POINT-OF-CARE METER ID UU13113731
[2017-04-03 19:18] LABS: POINT-OF-CARE METER ID UU13113731
[2017-04-04] VITALS: BP 130/70
[2017-04-04 00:15] LABS: POINT-OF-CARE METER ID UU14174217
[2017-04-04 00:50] LABS: POINT-OF-CARE METER ID UU14174217
[2017-04-04 03:00] VITALS: BP 121/76
[2017-04-04 04:00] VITALS: BP 124/68
[2017-04-04 05:09] LABS: BASE EXCESS -0.8 mEq/L (-3 to +3); BICARBONATE 23.4 mEq/L (22-26); CARBOXY HGB 1.5 % (0-5); COMMENTS - BLOOD GASES C+; DEVICE VENT; FI02 35 %; METHEMOGLOBIN 1.6 % (0-1.5); MODE SPONT; PCO2 36 mm Hg (35-45); PO2 83 mm Hg (80-100); SITE ALINE; pH 7.42 (7.35-7.45)
[2017-04-04 05:10] LABS: PEEP 8 CM/H20; PRES. SUPPORT 16 CM/H2O; TOTAL RESP RATE 15 resp/min
[2017-04-04 05:21] LABS: POINT-OF-CARE METER ID UU13113731
[2017-04-04 05:39] LABS: HEMATOCRIT 29.5 % (38.0-50.0); MCH 30.2 PG (29.0-34.0); MCHC 31.9 G/DL (30.0-36.0); MCV 94.9 FL (86-99); MEAN PLAT.VOLUME 11.1 uM^3 (9.0-12.4); PLATELET COUNT 146 K/uL (156-360); RBC DIS.WIDTH-CV 16.7 % (11.8-14.6); RBC DIS.WIDTH-SD 55.8 % (39-53); RED BLOOD COUNT 3.11 M/uL (4.00-5.50); WHITE BLOOD COUNT 7.1 K/uL (4.1-10.2)
[2017-04-04 06:09] LABS: ALKALINE PHOSPHATASE 72 IU/L (3-129); ANION GAP 7 MEQ/L (2-14); CHLORIDE 114 MEQ/L (99-109); DIRECT BILIRUBIN 1.7 mg/dL (0.0-0.3); GFR ESTIMATE (CALCULATED) > 59 mL/min/; GLUCOSE 132 mg/dL (70-99); MAGNESIUM 2.2 mg/dl (1.3-2.7); POTASSIUM 4.1 MEQ/L (3.7-5.4); PREALBUMIN 8.6 mg/dL (10-40); SAMPLE HEMOLYSIS CHECK 0; SAMPLE ICTERIC CHECK 0; SAMPLE LIPEMIA CHECK 0; SODIUM 144 MEQ/L (136-147); TOTAL BILIRUBIN 2.5 MG/DL (0.0-1.0); TRIGLYCERIDES 165 MG/DL (Normal: <150); UREA NITROGEN (BUN) 23 mg/dL (9-23)
[2017-04-04 07:00] VITALS: BP 124/68
[2017-04-04 07:03] LABS: ABS NEUTROPHIL COUNT 6.1; ANISOCYTOSIS 1+; ATYPICAL LYMPHOCYTE 0.9 %; BAND NEUTROPHILS 0.9 % (0-8.0); BASOPHILS 2.6 %; EOSINOPHIL ABS CT 0; INSTRUMENT ABS NEUTROPHIL CT 5.7 K/uL; LYMPHOCYTES 6.2 % (15.0-45.0); METAMYELOCYTES 0.9 %; MYELOCYTES 2.6 %; PLAT.SUFFICIENCY DECREASED
[2017-04-04 12:00] VITALS: BP 120/68
[2017-04-04 12:17] LABS: POINT-OF-CARE METER ID UU14314082
[2017-04-04 19:01] LABS: POINT-OF-CARE METER ID UU13113731
[2017-04-04 21:00] VITALS: BP 125/68
[2017-04-05] VITALS (8 sets, daily range): BP systolic 105–182; BP diastolic 59–99
[2017-04-05 00:27] LABS: POINT-OF-CARE METER ID UU13113731
[2017-04-05 05:31] LABS: POINT-OF-CARE METER ID UU14174217
[2017-04-05 06:17] LABS: ANION GAP 8 MEQ/L (2-14); CHLORIDE 113 MEQ/L (99-109); GFR ESTIMATE (CALCULATED) > 59 mL/min/; GLUCOSE 128 mg/dL (70-99); POTASSIUM 4.3 MEQ/L (3.7-5.4); SAMPLE HEMOLYSIS CHECK 0; SAMPLE ICTERIC CHECK 0; SAMPLE LIPEMIA CHECK 0; SODIUM 143 MEQ/L (136-147); UREA NITROGEN (BUN) 21 mg/dL (9-23)
[2017-04-05 10:26] LABS: URINE UREA NITROGEN 11768 MG/24 HR
[2017-04-05 11:45] LABS: POINT-OF-CARE METER ID UU13113803
[2017-04-05 18:39] LABS: POINT-OF-CARE METER ID UU13113803
[2017-04-05 23:58] LABS: POINT-OF-CARE METER ID UU14174217
[2017-04-06] VITALS: BP 144/81
[2017-04-06 04:00] VITALS: BP 133/73
[2017-04-06 05:00] LABS: POINT-OF-CARE METER ID UU13113748
[2017-04-06 06:01] LABS: ANION GAP 8 MEQ/L (2-14); CHLORIDE 114 MEQ/L (99-109); GFR ESTIMATE (CALCULATED) > 59 mL/min/; GLUCOSE 130 mg/dL (70-99); MAGNESIUM 1.8 mg/dl (1.3-2.7); POTASSIUM 4.8 MEQ/L (3.7-5.4); SAMPLE HEMOLYSIS CHECK 0; SAMPLE ICTERIC CHECK 0; SAMPLE LIPEMIA CHECK 0; SODIUM 142 MEQ/L (136-147); UREA NITROGEN (BUN) 21 mg/dL (9-23)
[2017-04-06 08:00] VITALS: BP 132/77
[2017-04-06 12:00] VITALS: BP 126/71
[2017-04-06 12:13] LABS: POINT-OF-CARE METER ID UU13113803
[2017-04-06 17:21] LABS: POINT-OF-CARE METER ID UU13113748
[2017-04-06 20:00] VITALS: BP 112/70
[2017-04-06 22:00] VITALS: BP 123/73
[2017-04-07] VITALS (7 sets, daily range): BP systolic 115–140; BP diastolic 77–84
[2017-04-07 01:05] LABS: POINT-OF-CARE METER ID UU14314082
[2017-04-07 05:08] LABS: POINT-OF-CARE METER ID UU13113803
[2017-04-07 05:17] LABS: MCH 29.3 PG (29.0-34.0); MCHC 30.3 G/DL (30.0-36.0); MCV 96.5 FL (86-99); MEAN PLAT.VOLUME 10.5 uM^3 (9.0-12.4); PLATELET COUNT 168 K/uL (156-360); RBC DIS.WIDTH-CV 15.9 % (11.8-14.6); RED BLOOD COUNT 3.11 M/uL (4.00-5.50); WHITE BLOOD COUNT 4.6 K/uL (4.1-10.2)
[2017-04-07 05:50] LABS: ANION GAP 5 MEQ/L (2-14); CHLORIDE 113 MEQ/L (99-109); GFR ESTIMATE (CALCULATED) > 59 mL/min/; GLUCOSE 141 mg/dL (70-99); MAGNESIUM 1.9 mg/dl (1.3-2.7); POTASSIUM 4.9 MEQ/L (3.7-5.4); SAMPLE HEMOLYSIS CHECK 0; SAMPLE ICTERIC CHECK 0; SAMPLE LIPEMIA CHECK 0; SODIUM 140 MEQ/L (136-147); UREA NITROGEN (BUN) 21 mg/dL (9-23)
[2017-04-07 06:13] LABS: ABS NEUTROPHIL COUNT 3.8; ANISOCYTOSIS 1+; ATYPICAL LYMPHOCYTE 1.8 %; BAND NEUTROPHILS 15.8 % (0-8.0); BASOPHILS 1.7 %; EOSINOPHIL ABS CT 0.1; EOSINOPHILS 1.7 % (0-5.0); INSTRUMENT ABS NEUTROPHIL CT 3.8 K/uL; LYMPHOCYTES 5.3 % (15.0-45.0); METAMYELOCYTES 0.9 %; MICROCYTOSIS 1+; PLAT.SUFFICIENCY ADEQUATE; SEG.NEUTROPHILS 66.7 % (46.0-76.0); TARGET CELLS 1+
[2017-04-07 12:03] LABS: POINT-OF-CARE METER ID UU14208751
[2017-04-07 16:12] LABS: ANION GAP 7 MEQ/L (2-14); CHLORIDE 110 MEQ/L (99-109); GFR ESTIMATE (CALCULATED) > 59 mL/min/; GLUCOSE 163 mg/dL (70-99); POTASSIUM 4.3 MEQ/L (3.7-5.4); SAMPLE HEMOLYSIS CHECK 0; SAMPLE ICTERIC CHECK 0; SAMPLE LIPEMIA CHECK 0; SODIUM 138 MEQ/L (136-147); UREA NITROGEN (BUN) 20 mg/dL (9-23)
[2017-04-07 18:31] LABS: POINT-OF-CARE METER ID UU14208751
[2017-04-08] VITALS (8 sets, daily range): BP systolic 114–196; BP diastolic 74–105
[2017-04-08 05:00] LABS: MCH 30.2 PG (29.0-34.0); MCV 94.3 FL (86-99); MEAN PLAT.VOLUME 10.6 uM^3 (9.0-12.4); PLATELET COUNT 182 K/uL (156-360); RBC DIS.WIDTH-CV 15.3 % (11.8-14.6); RBC DIS.WIDTH-SD 52.9 % (39-53); RED BLOOD COUNT 3.18 M/uL (4.00-5.50); WHITE BLOOD COUNT 4.4 K/uL (4.1-10.2)
[2017-04-08 05:12] LABS: CHLORIDE 109 mEq/L (99-109); POTASSIUM 4.1 mEq/L (3.7-5.4); SODIUM 139 mEq/L (136-147)
[2017-04-08 05:13] LABS: AMYLASE 32 IU/L (1-118)
[2017-04-08 05:15] LABS: GLUCOSE 175 mg/dL (70-99)
[2017-04-08 05:16] LABS: ANION GAP 8 MEQ/L (2-14)
[2017-04-08 05:18] LABS: GFR ESTIMATE (CALCULATED) > 59 mL/min/
[2017-04-08 05:19] LABS: UREA NITROGEN (BUN) 21 mg/dL (9-23)
[2017-04-08 05:21] LABS: LIPASE 4 U/L (1.0-51.0)
[2017-04-08 05:23] LABS: MAGNESIUM 1.4 mg/dL (1.3-2.7)
[2017-04-08 06:46] LABS: EOSINOPHIL (%) 0.5 % (0-5); IMMATURE GRANULOCYTE (%) 2.9 % (0.0-0.7); IMMATURE GRANULOCYTE COUNT 0.1 K/uL; INSTRUMENT ABS NEUTROPHIL CT 3.6 K/uL; LYMPHOCYTE COUNT 0.3 K/uL (1.0-2.8); MONOCYTE COUNT 0.4 K/uL (0-0.8); NEUTROPHIL (%) 81.5 % (45-76); NEUTROPHIL COUNT 3.6 K/uL (1.8-6.4)
[2017-04-08 12:31] LABS: POINT-OF-CARE METER ID UU14208751
[2017-04-08 18:45] LABS: POINT-OF-CARE METER ID UU13113748
[2017-04-08 19:52] LABS: POINT-OF-CARE METER ID UU14314082; POINT-OF-CARE USER ID RADDRS44
[2017-04-08 23:37] LABS: POINT-OF-CARE METER ID UU14314082; POINT-OF-CARE USER ID RADDRS44
[2017-04-09] VITALS: BP 108/78
[2017-04-09 04:00] VITALS: BP 150/102
[2017-04-09 05:16] LABS: POINT-OF-CARE METER ID UU14208751; POINT-OF-CARE USER ID RADDRS44
[2017-04-09 05:18] LABS: HEMATOCRIT 29.5 % (38.0-50.0); MCH 30.5 PG (29.0-34.0); MCHC 32.2 G/DL (30.0-36.0); MCV 94.9 FL (86-99); MEAN PLAT.VOLUME 10.4 uM^3 (9.0-12.4); PLATELET COUNT 209 K/uL (156-360); RBC DIS.WIDTH-CV 15.4 % (11.8-14.6); RBC DIS.WIDTH-SD 52.5 % (39-53); RED BLOOD COUNT 3.11 M/uL (4.00-5.50); WHITE BLOOD COUNT 5.2 K/uL (4.1-10.2)
[2017-04-09 05:54] LABS: ANION GAP 8 MEQ/L (2-14); CHLORIDE 104 MEQ/L (99-109); GFR ESTIMATE (CALCULATED) > 59 mL/min/; GLUCOSE 157 mg/dL (70-99); POTASSIUM 3.9 MEQ/L (3.7-5.4); SAMPLE HEMOLYSIS CHECK 0; SAMPLE ICTERIC CHECK 0; SAMPLE LIPEMIA CHECK 0; SODIUM 136 MEQ/L (136-147); TOTAL BILIRUBIN 2.1 MG/DL (0.0-1.0); UREA NITROGEN (BUN) 20 mg/dL (9-23)
[2017-04-09 05:55] LABS: ALKALINE PHOSPHATASE 138 IU/L (3-129)
[2017-04-09 07:03] LABS: BAND NEUTROPHILS 3.5 % (0-8.0); BASOPHILS 0.9 %; EOSINOPHIL ABS CT 0.1; EOSINOPHILS 1.8 % (0-5.0); INSTRUMENT ABS NEUTROPHIL CT 4.1 K/uL; LYMPHOCYTES 6.2 % (15.0-45.0); METAMYELOCYTES 1.8 %; MYELOCYTES 1.8 %; PLAT.SUFFICIENCY ADEQUATE; POLYCHROMASIA 1+; SEG.NEUTROPHILS 74.3 % (46.0-76.0)
[2017-04-09 08:00] VITALS: BP 151/86
[2017-04-09 12:00] VITALS: BP 112/72
[2017-04-09 12:34] LABS: POINT-OF-CARE METER ID UU13113748
[2017-04-09 17:52] LABS: POINT-OF-CARE METER ID UU14208751
[2017-04-09 20:00] VITALS: BP 172/87
[2017-04-09 23:00] VITALS: BP 172/87
[2017-04-10] VITALS: BP 133/78
[2017-04-10 00:06] LABS: POINT-OF-CARE METER ID UU13113748; POINT-OF-CARE USER ID RADDRS44
[2017-04-10 04:00] VITALS: BP 146/90
[2017-04-10 04:48] LABS: CHLORIDE 104 mEq/L (99-109); POTASSIUM 3.4 mEq/L (3.7-5.4); SODIUM 136 mEq/L (136-147)
[2017-04-10 04:49] LABS: MAGNESIUM 1.5 mg/dL (1.3-2.7)
[2017-04-10 04:50] LABS: GLUCOSE 185 mg/dL (70-99)
[2017-04-10 04:52] LABS: ANION GAP 6 MEQ/L (2-14)
[2017-04-10 04:54] LABS: GFR ESTIMATE (CALCULATED) > 59 mL/min/
[2017-04-10 04:55] LABS: UREA NITROGEN (BUN) 17 mg/dL (9-23)
[2017-04-10 08:00] VITALS: BP 165/83
[2017-04-10 11:22] LABS: BASE EXCESS 3.1 mEq/L (-3 to +3); BICARBONATE 26.9 mEq/L (22-26); CARBOXY HGB 1.6 % (0-5); METHEMOGLOBIN 1.5 % (0-1.5); PCO2 37 mm Hg (35-45); pH 7.47 (7.35-7.45)
[2017-04-10 11:23] LABS: CONTINUOUS POS AIRWAY PRESSURE 5 cm H2O; DEVICE VENT; FI02 30 %; MODE SPONT; PO2 117 mm Hg (80-100); PRES. SUPPORT 10 CM/H2O; SITE A LINE; TOTAL RESP RATE 25 resp/min
[2017-04-10 11:28] LABS: POINT-OF-CARE METER ID UU14208751
[2017-04-10 12:00] VITALS: BP 144/97
[2017-04-10 16:00] VITALS: BP 155/88
[2017-04-10 17:49] LABS: POINT-OF-CARE METER ID UU14208751
[2017-04-10 20:00] VITALS: BP 160/84
[2017-04-10 23:54] LABS: POINT-OF-CARE METER ID UU14208751; POINT-OF-CARE USER ID RADDRS44
[2017-04-11] VITALS (11 sets, daily range): BP systolic 112–163; BP diastolic 69–92
[2017-04-11 05:07] LABS: BASE EXCESS 4.4 mEq/L (-3 to +3); BICARBONATE 28.4 mEq/L (22-26); CARBOXY HGB 1.4 % (0-5); COMMENTS - BLOOD GASES C; DEVICE VENT; FI02 30 %; METHEMOGLOBIN 1.9 % (0-1.5); MODE SIMV; PCO2 39 mm Hg (35-45); PO2 107 mm Hg (80-100); SITE ALINE; pH 7.47 (7.35-7.45)
[2017-04-11 05:08] LABS: MECHANICAL RATE 6 resp/min; PEEP 5 CM/H20; PRES. SUPPORT 15 CM/H2O; TIDAL VOLUME 500 ML; TOTAL RESP RATE 34 resp/min
[2017-04-11 05:37] LABS: HEMATOCRIT 27.6 % (38.0-50.0); MCH 30.2 PG (29.0-34.0); MCHC 31.9 G/DL (30.0-36.0); MCV 94.8 FL (86-99); MEAN PLAT.VOLUME 10.7 uM^3 (9.0-12.4); PLATELET COUNT 219 K/uL (156-360); RBC DIS.WIDTH-CV 14.9 % (11.8-14.6); RBC DIS.WIDTH-SD 51.8 % (39-53); RED BLOOD COUNT 2.91 M/uL (4.00-5.50); WHITE BLOOD COUNT 5.4 K/uL (4.1-10.2)
[2017-04-11 05:55] LABS: ALKALINE PHOSPHATASE 126 IU/L (3-129); ANION GAP 8 MEQ/L (2-14); CHLORIDE 103 MEQ/L (99-109); GFR ESTIMATE (CALCULATED) > 59 mL/min/; GLUCOSE 143 mg/dL (70-99); POTASSIUM 3.7 MEQ/L (3.7-5.4); SAMPLE HEMOLYSIS CHECK 0; SAMPLE ICTERIC CHECK 0; SAMPLE LIPEMIA CHECK 0; SODIUM 138 MEQ/L (136-147); TOTAL BILIRUBIN 1.9 MG/DL (0.0-1.0); UREA NITROGEN (BUN) 17 mg/dL (9-23)
[2017-04-11 14:32] LABS: RESEND RESULTS RESEND RESULTS
[2017-04-12] VITALS (16 sets, daily range): BP systolic 99–163; BP diastolic 74–98
[2017-04-13] VITALS (8 sets, daily range): BP systolic 133–162; BP diastolic 75–93
[2017-04-13 14:51] LABS: HIV-1/2 AB/AG COMBO Nonreactive
[2017-04-14] VITALS (9 sets, daily range): BP systolic 0–172; BP diastolic 0–103
[2017-04-14 04:50] LABS: HEMATOCRIT 30.7 % (38.0-50.0); MCHC 32.2 G/DL (30.0-36.0); NRBC (%) 0.2 /100 WBC (0-0); PLATELET COUNT 232 K/uL (156-360); RBC DIS.WIDTH-CV 15.1 % (11.8-14.6); RBC DIS.WIDTH-SD 50.9 % (39-53); WHITE BLOOD COUNT 9.3 K/uL (4.1-10.2)
[2017-04-14 05:02] LABS: CHLORIDE 113 mEq/L (99-109)
[2017-04-14 05:03] LABS: GLUCOSE 129 mg/dL (70-99)
[2017-04-14 05:05] LABS: ANION GAP 12 MEQ/L (2-14)
[2017-04-14 05:07] LABS: GFR ESTIMATE (CALCULATED) > 59 mL/min/
[2017-04-14 05:08] LABS: UREA NITROGEN (BUN) 21 mg/dL (9-23)
[2017-04-14 05:09] LABS: POTASSIUM 2.9 mEq/L (3.7-5.4); SODIUM 147 mEq/L (136-147)
[2017-04-15] VITALS (9 sets, daily range): BP systolic 129–156; BP diastolic 73–98
[2017-04-15 06:17] LABS: ANION GAP 11 MEQ/L (2-14); GFR ESTIMATE (CALCULATED) > 59 mL/min/; GLUCOSE 144 mg/dL (70-99); SAMPLE HEMOLYSIS CHECK 0; SAMPLE ICTERIC CHECK 0; SAMPLE LIPEMIA CHECK 0; SODIUM 151 MEQ/L (136-147); UREA NITROGEN (BUN) 24 mg/dL (9-23)
[2017-04-15 06:18] LABS: CHLORIDE 117 MEQ/L (99-109); POTASSIUM 3.8 MEQ/L (3.7-5.4)
[2017-04-16] VITALS (10 sets, daily range): BP systolic 58–236; BP diastolic 37–102
[2017-04-16 06:37] LABS: CHLORIDE 122 mEq/L (99-109); POTASSIUM 3.9 mEq/L (3.7-5.4); SODIUM 155 mEq/L (136-147)
[2017-04-16 06:38] LABS: GLUCOSE 140 mg/dL (70-99)
[2017-04-16 06:40] LABS: ANION GAP 13 MEQ/L (2-14)
[2017-04-16 06:42] LABS: GFR ESTIMATE (CALCULATED) > 59 mL/min/
[2017-04-16 06:43] LABS: UREA NITROGEN (BUN) 27 mg/dL (9-23)
[2017-04-16 09:16] LABS: HEMATOCRIT 36.6 % (38.0-50.0); MCH 29.6 PG (29.0-34.0); MCHC 31.1 G/DL (30.0-36.0); MCV 95.1 FL (86-99); MEAN PLAT.VOLUME 10.1 uM^3 (9.0-12.4); PLATELET COUNT 263 K/uL (156-360); RBC DIS.WIDTH-CV 15.8 % (11.8-14.6); RBC DIS.WIDTH-SD 53.7 % (39-53); RED BLOOD COUNT 3.85 M/uL (4.00-5.50); WHITE BLOOD COUNT 14.5 K/uL (4.1-10.2)
[2017-04-16 09:34] LABS: ANION GAP 12 MEQ/L (2-14); CHLORIDE 122 MEQ/L (99-109); GFR ESTIMATE (CALCULATED) > 59 mL/min/; GLUCOSE 152 mg/dL (70-99); POTASSIUM 3.9 MEQ/L (3.7-5.4); SAMPLE HEMOLYSIS CHECK 0; SAMPLE ICTERIC CHECK 0; SAMPLE LIPEMIA CHECK 0; SODIUM 155 MEQ/L (136-147); UREA NITROGEN (BUN) 27 mg/dL (9-23)
[2017-04-16 23:32] LABS: BASE EXCESS -21.7 mEq/L (-3 to +3); BICARBONATE 9.4 mEq/L (22-26); CARBOXY HGB 0.7 % (0-5); COMMENTS - BLOOD GASES C+; DEVICE VENT; FI02 100 %; MECHANICAL RATE 16 resp/min; METHEMOGLOBIN 2.5 % (0-1.5); MODE A/C; PCO2 41 mm Hg (35-45); PEEP 5 CM/H20; PO2 395 mm Hg (80-100); SITE LFEM; TIDAL VOLUME 500 ML; TOTAL RESP RATE 24 resp/min; pH 6.97 (7.35-7.45)
[2017-04-17] VITALS (19 sets, daily range): BP systolic 51–171; BP diastolic 0–119
[2017-04-17 00:21] LABS: INTER. NORMALIZED RATIO 1.5; PROTHROMBIN TIME 17.3 SEC (10.2-12.9)
[2017-04-17 00:24] LABS: PTT 33.8 SEC (25-37)
[2017-04-17 00:25] LABS: CHLORIDE 125 mEq/L (99-109); SODIUM 158 mEq/L (136-147)
[2017-04-17 00:29] LABS: ANION GAP 25 MEQ/L (2-14); HEMATOCRIT 39.1 % (38.0-50.0); MCH 30.4 PG (29.0-34.0); MCHC 28.6 G/DL (30.0-36.0); MEAN PLAT.VOLUME 10.3 uM^3 (9.0-12.4); NRBC (%) 0.6 /100 WBC (0-0); RBC DIS.WIDTH-CV 16.4 % (11.8-14.6); RBC DIS.WIDTH-SD 61.8 % (39-53); RED BLOOD COUNT 3.69 M/uL (4.00-5.50)
[2017-04-17 00:30] LABS: PLATELET COUNT 388 K/uL (156-360); TOTAL BILIRUBIN 1.6 mg/dL (0.0-1.0); WHITE BLOOD COUNT 56.9 K/uL (4.1-10.2)
[2017-04-17 00:31] LABS: ALKALINE PHOSPHATASE 142 IU/L (3-129); GLUCOSE 105 mg/dL (70-99)
[2017-04-17 00:32] LABS: GFR ESTIMATE (CALCULATED) 44 mL/min/; MAGNESIUM 2.4 mg/dL (1.3-2.7); POTASSIUM 4.7 mEq/L (3.7-5.4)
[2017-04-17 00:33] LABS: UREA NITROGEN (BUN) 33 mg/dL (9-23)
[2017-04-17 00:35] LABS: TROP-I INTERPRETATION INDETERMINATE; TROPONIN-I 0.34 ng/mL (0.0-0.30)
[2017-04-17 00:44] LABS: BASE EXCESS -17.4 mEq/L (-3 to +3); BICARBONATE 9.2 mEq/L (22-26); METHEMOGLOBIN 2.6 % (0-1.5)
[2017-04-17 00:45] LABS: COMMENTS - BLOOD GASES C+; DEVICE 840; FI02 60 %; INSPIRATION TIME 0.8 seconds; MECHANICAL RATE 25 resp/min; MODE AC/VC+; PCO2 24 mm Hg (35-45); PO2 132 mm Hg (80-100); SITE LF; TOTAL RESP RATE 37 resp/min
[2017-04-17 00:46] LABS: PEEP 5 CM/H20; TIDAL VOLUME 500 ML; pH 7.19 (7.35-7.45)
[2017-04-17 01:18] LABS: METH RESISTANT S AUREUS PCR NEGATIVE (NEGATIVE)
[2017-04-17 01:23] LABS: PROBE CHECK PASS; SPECIMEN PROCESSING CONTROL PASS
[2017-04-17 01:30] LABS: C DIFF TOXIN NEGATIVE (NEGATIVE)
[2017-04-17 01:31] LABS: PROBE CHECK PASS; SPECIMEN PROCESSING CONTROL PASS
[2017-04-17 01:45] LABS: ABS NEUTROPHIL COUNT 46.2; ANISOCYTOSIS 1+; ATYPICAL LYMPHOCYTE 3.1 %; BURR CELLS 2+; EOSINOPHIL ABS CT 0; INSTRUMENT ABS NEUTROPHIL CT 42.8 K/uL; LYMPHOCYTES 3.9 % (15.0-45.0); METAMYELOCYTES 3.9 %; MICROCYTOSIS 1+; MYELOCYTES 1.8 %; NUCLEATED RBC'S 0.4; PLAT.SUFFICIENCY ADEQUATE; POIKILOCYTOSIS 2+; ROULEAUX 2+; SEG.NEUTROPHILS 70.2 % (46.0-76.0); SPHEROCYTES 2+
[2017-04-17 02:49] LABS: POINT-OF-CARE METER ID UU14314083
[2017-04-17 06:08] LABS: HEMATOCRIT 37.7 % (38.0-50.0); MCH 29.9 PG (29.0-34.0); MCHC 27.3 G/DL (30.0-36.0); MCV 109.6 FL (86-99); MEAN PLAT.VOLUME 9.7 uM^3 (9.0-12.4); NRBC (%) 1.3 /100 WBC (0-0); PLATELET COUNT 351 K/uL (156-360); RBC DIS.WIDTH-CV 16.5 % (11.8-14.6); RBC DIS.WIDTH-SD 65.5 % (39-53); RED BLOOD COUNT 3.44 M/uL (4.00-5.50)
[2017-04-17 06:10] LABS: WHITE BLOOD COUNT 60.1 K/uL (4.1-10.2)
[2017-04-17 06:43] LABS: ANION GAP 28 MEQ/L (2-14); CHLORIDE 121 MEQ/L (99-109); MAGNESIUM 2.6 mg/dl (1.3-2.7); SAMPLE HEMOLYSIS CHECK 0; SAMPLE ICTERIC CHECK 0; SAMPLE LIPEMIA CHECK 0; SODIUM 156 MEQ/L (136-147); UREA NITROGEN (BUN) 35 mg/dL (9-23)
[2017-04-17 06:54] LABS: CARBON DIOXIDE (BICARBONATE) < 10.0 MEQ/L (20-31); GFR ESTIMATE (CALCULATED) 33 mL/min/; GLUCOSE 47 mg/dL (70-99); POTASSIUM 7.1 MEQ/L (3.7-5.4)
[2017-04-17 09:46] LABS: POINT-OF-CARE METER ID UU14314083
[2017-04-17 09:46] LABS: POINT-OF-CARE METER ID UU13113748
== END 2017-04-17 08:32 | DRG 870 ==
LOC: EME → EDBD 19:14 → EDOF 21:04 → 4WEST 21:04 → ENRESERV 21:05 → ENRESERVTM 03-27 01:02 → ENRESERVDT 03-27 01:02 → 4WEST 03-27 02:10 → ENRESERV 04-16 11:32 → 5EAST 04-16 15:59 → ENRESERV 04-16 23:12 → 4WEST 04-16 23:19
PROVIDERS: Emergency Medicine; Hospitalist; Internal Medicine; Internal Medicine Critical Care Medicine; Internal Medicine Pulmonary Disease; Pediatrics; Physician Assistant; Specialist; Surgery
PROC: 30233R1 Transfusion of Nonautologous Platelets into Peripheral Vein, Percutaneous Approach (ICD-10-PCS; principal; 2017-03-28)
PROC: 0BH18EZ Insertion of Endotracheal Airway into Trachea, Via Natural or Artificial Opening Endoscopic (ICD-10-PCS; principal; 2017-03-28)
PROC: 30233N1 Transfusion of Nonautologous Red Blood Cells into Peripheral Vein, Percutaneous Approach (ICD-10-PCS; principal; 2017-03-28)
PROC: 02HV33Z Insertion of Infusion Device into Superior Vena Cava, Percutaneous Approach (ICD-10-PCS; principal; 2017-03-28)
PROC: 4A133BC Monitoring of Arterial Pressure, Coronary, Percutaneous Approach (ICD-10-PCS; principal; 2017-03-28)
PROC: 5A1955Z Respiratory Ventilation, Greater than 96 Consecutive Hours (ICD-10-PCS; principal; 2017-03-28)
PROC: 0DB68ZX Excision of Stomach, Via Natural or Artificial Opening Endoscopic, Diagnostic (ICD-10-PCS; 2017-03-29)
PROC: 3E0336Z Introduction of Nutritional Substance into Peripheral Vein, Percutaneous Approach (ICD-10-PCS; 2017-04-01)
PROC: 0BC68ZZ Extirpation of Matter from Right Lower Lobe Bronchus, Via Natural or Artificial Opening Endoscopic (ICD-10-PCS; 2017-04-03)
PROC: 0BC38ZZ Extirpation of Matter from Right Main Bronchus, Via Natural or Artificial Opening Endoscopic (ICD-10-PCS; 2017-04-03)
PROC: 02H633Z Insertion of Infusion Device into Right Atrium, Percutaneous Approach (ICD-10-PCS; 2017-04-17)
PROC: 5A2204Z Restoration of Cardiac Rhythm, Single (ICD-10-PCS; 2017-04-17)
DX: A41.9 Sepsis, unspecified organism (principal); R65.21 Severe sepsis with septic shock; I21.4 Non-ST elevation (NSTEMI) myocardial infarction; E11.10 Type 2 diabetes mellitus with ketoacidosis without coma; D62 Acute posthemorrhagic anemia; N17.9 Acute kidney failure, unspecified; Z89.611 Acquired absence of right leg above knee; Z89.612 Acquired absence of left leg above knee; E11.51 Type 2 diabetes mellitus with diabetic peripheral angiopathy without gangrene; I49.01 Ventricular fibrillation; B18.2 Chronic viral hepatitis C; E87.6 Hypokalemia; K74.69 Other cirrhosis of liver; J96.90 Respiratory failure, unspecified, unspecified whether with hypoxia or hypercapnia; K29.61 Other gastritis with bleeding; K25.4 Chronic or unspecified gastric ulcer with hemorrhage; J96.01 Acute respiratory failure with hypoxia; E43 Unspecified severe protein-calorie malnutrition; E83.42 Hypomagnesemia; E83.39 Other disorders of phosphorus metabolism; E87.0 Hyperosmolality and hypernatremia; K55.059 Acute (reversible) ischemia of intestine, part and extent unspecified; J98.09 Other diseases of bronchus, not elsewhere classified; B37.82 Candidal enteritis; K56.699 Other intestinal obstruction unspecified as to partial versus complete obstruction; T40.605A Adverse effect of unspecified narcotics, initial encounter; J90 Pleural effusion, not elsewhere classified; G93.41 Metabolic encephalopathy; I10 Essential (primary) hypertension; M06.9 Rheumatoid arthritis, unspecified; R57.1 Hypovolemic shock
CPT/HCPCS: 31500; 36600; 70470; 71010; 71275; 74174; 74177; 76937; 80047; 80048; 80048 91; 80053; 80202; 81003; 81050; 82010; 82140; 82150; 82248; 82533 91; 82550; 82550 91; 82553; 82803; 82948; 83036; 83605; 83690; 83735; 83880; 84100; 84134; 84295; 84478; 84484; 84540; 84630 90; 84999; 85025; 85025 91; 85027; 85610; 85730; 86703; 86850; 86900; 86901; 86920; 87040; 87070; 87086; 87103; 87106; 87205; 87493; 87641; 87801; 88305; 88312; 88342 TC; 90686; 92526 GN; 92610 GN; 93005; 93306; 94002; 94003; 94010; 94640; 94640 76; 94667; 94668; 94760; 94799; 95819; 97530 GO; 97530 GP; 97532 GN; 99202; 99281; 99285; C1751; C9113; J0282; J0610; J1170; J1450; J1644; J1815; J1940; J2250; J2270; J2370; J2405; J2543; J2704; J2720; J2765; J2997; J3010; J3370; J3475; J3480; J7030; J7050; J7070; J7120; P9016; P9017; P9035